=== PATIENT | male | born 1990 | race Caucasian/White ===

== ENCOUNTER 2017-08-25 14:12 | Day surgery (SDC) | payer BC ==
[2017-08-25] MEDS ORDERED: Glucagon,Human Recombinant 1 MG Vial IVPUSH ONE (14:58)
[2017-08-25] MEDS ORDERED: Sodium Chloride 0.9% 10 ML Syringe FLUSH PRN (14:58)
[2017-08-25] MEDS ORDERED: LORazepam 2 MG/ML SDV IVPUSH ONE (14:58)
--- NOTE | 2017-08-25 15:20 | EDM.PDOC ---
ED HPI GENERAL MEDICAL PROBLEM - General Chief Complaint: ENT Problem Stated Complaint: FB LODGED IN THROAT Time Seen by Provider: 08/25/17 14:58 Source of Information: Reports: Patient History Limitations: Reports: No Limitations - History of Present Illness INITIAL COMMENTS - FREE TEXT/NARRATIVE: 27-year-old male presents for evaluation and treatment of an impacted food bolus. Patient reports that last night he ate a piece of port. He states that at it felt like it became stuck. He attempted to induce vomiting but it did not appear to come up. He was able to take some sips of water last night and this morning; unclear if he was able to swallow the water. He is primarily complaining of discomfort to the suprasternal notch in the epigastric area. Today he has been unable to eat or drink anything for lunch. He cannot swallow his secretions. He denies any shortness of breath, chest pain or any difficulty breathing. He states he has had some simial symptoms to this before but never anything that is come completely impacted. He has never had an upper endoscopy. Patient reports he is healthy with no known medical conditions. He is not on any medications. - Related Data Allergies Allergy/AdvReac Type Severity Reaction Status Date / Time No Known Allergies Allergy Verified 08/25/17 14:25 Home Meds: Home Meds . [No Known Home Meds] 08/25/17 [History] Past Medical History - Past Health History Medical/Surgical History: Denies Medical/Surgical History - Past Surgical History Other HEENT Surgeries/Procedures: [place] teeth removal Social & Family History - Family History Family Medical History: Noncontributory - Tobacco Use Smoking Status *Q: Current Every Day Smoker Years of Tobacco use: 5 Packs/Tins Daily: 0.5 - Caffeine Use Caffeine Use: Reports: Coffee, Energy Drinks Caffeine Use Comment: Daily - Recreational Drug Use Recreational Drug Use: No ED ROS ENT - Review of Systems Review Of Systems: See Below Respiratory: Denies: Shortness of Breath Cardiovascular: Denies: Chest Pain GI/Abdominal: Reports: Other (reprots discomfort to the suprasternal notch and epigastric area). Denies: Nausea, Vomiting ED EXAM, ENT - Physical Exam Exam: See Below Exam Limited By: No Limitations General Appearance: Alert, WD/WN, No Apparent Distress, Thin Mouth/Throat: Normal Inspection, Normal Gums, Normal Lips, Normal Oropharynx Neck: Normal Inspection Respiratory/Chest: No Respiratory Distress, Lungs Clear, Normal Breath Sounds Cardiovascular: Normal Peripheral Pulses, Regular Rate, Rhythm, No Murmur Neurological: Alert, Oriented, Normal Cognition Psychiatric: Normal Affect, Normal Mood Skin: Warm, Dry, Normal Color Course - Vital Signs Last Recorded V/S: Last Vital Signs Temp 37.3 C 08/25/17 17:45 Pulse 92 08/25/17 17:29 Resp 20 08/25/17 17:45 BP 124/72 08/25/17 17:45 Pulse Ox 97 08/25/17 17:45 - Orders/Labs/Meds Orders: Active Orders 24 hr Category Date Time Status Patient Status [ADT] Routine ADT 08/25/17 16:43 Active Communication Order [RC] ROUTINE Care 08/25/17 17:04 Active Cooling Warming Measures [RC] ASDIRECTED Care 08/25/17 17:04 Active Notify Provider [RC] ASDIRECTED Care 08/25/17 17:05 Active Oxygen Therapy [RC] ASDIRECTED Care 08/25/17 17:04 Active Peripheral IV Care [RC] . DIRECTED Care 08/25/17 14:59 Active Pulse Oximetry [RC] ASDIRECTED Care 08/25/17 17:04 Active Ready for Discharge [RC] PER UNIT ROUTINE Care 08/25/17 17:20 Active Vital Signs [RC] Q15M Care 08/25/17 17:04 Active Peripheral IV Insertion Adult [OM.PC] Routine Oth 08/25/17 14:58 Ordered Schedule Procedure [COMM] Stat Oth 08/25/17 16:40 Ordered Meds: Medications Discontinued Medications Generic Name Dose Route Start Last Admin Trade Name Kendrickq PRN Reason Stop Dose Admin Diphenhydramine HCl 25 mg 08/25/17 17:05 Benadryl IVPUSH Q6H PRN pruritis Fentanyl Confirm 08/25/17 16:19 Sublimaze Administered 08/25/17 16:20 Dose 100 mcg .ROUTE .STK-MED ONE Fentanyl 50 mcg 08/25/17 17:05 Sublimaze IVPUSH Q5M PRN Pain Glucagon 1 mg 08/25/17 14:58 08/25/17 15:17 Glucagen IVPUSH 08/25/17 14:59 1 mg ONETIME ONE Administration Hydromorphone HCl 1 mg 08/25/17 17:05 Dilaudid IVPUSH ONETIME PRN Pain Lidocaine HCl Confirm 08/25/17 16:19 Xylocaine-Mpf 1% Administered 08/25/17 16:20 Dose 6 mls @ as directed .ROUTE .STK-MED ONE Lorazepam 1 mg 08/25/17 14:58 08/25/17 15:17 Ativan IVPUSH 08/25/17 14:59 1 mg ONETIME ONE Administration Ondansetron HCl Confirm 08/25/17 16:19 Zofran Administered 08/25/17 16:20 Dose 4 mg .ROUTE .STK-MED ONE Ondansetron HCl 4 mg 08/25/17 17:05 Zofran IVPUSH ONETIME PRN Nausea/Vomiting Propofol Confirm 08/25/17 16:19 Diprivan 20 Ml Administered 08/25/17 16:20 Dose 200 mg .ROUTE .STK-MED ONE Sodium Chloride 10 ml 08/25/17 14:58 08/25/17 15:17 Saline Flush FLUSH 10 ml ASDIRECTED PRN Administration Keep Vein Open Succinylcholine Chloride Confirm 08/25/17 16:19 Succinylcholine In Ns Pf Administered 08/25/17 16:20 Dose 100 mg .ROUTE .STK-MED ONE - Re-Assessments/Exams Free Text/Narrative Re-Assessment/Exam: 08/25/17 16:08 Patient has been unable to swallow his secretions with the glucagon and Ativan. I did given him a little sprite. He was unable to swallow the sprite and it immediately came up. Case discussed with Dr. Bui. He will take the patient to the to retrieve the food bolus. Departure - Departure Time of Disposition: 16:10 Disposition: Refer to Observation Condition: Fair Clinical Impression: Esophageal obstruction due to food impaction - Discharge Information - My Orders Last 24 Hours: My Active Orders 08/25/17 14:58 Peripheral IV Insertion Adult [OM.PC] Routine 08/25/17 14:59 Peripheral IV Care [RC] . DIRECTED - Assessment/Plan Last 24 Hours: My Active Orders 08/25/17 14:58 Peripheral IV Insertion Adult [OM.PC] Routine 08/25/17 14:59 Peripheral IV Care [RC] . DIRECTED
--- NOTE | 2017-08-25 16:14 | PCM.PREANE ---
Preanesthetic Assessment - Anesthesia/Transfusion/Family Hx Anesthesia History: Prior Anesthesia Without Reaction Family History of Anesthesia Reaction: No Transfusion History: No Prior Transfusion(s) Intubation History: Unknown - Review of Systems General: No Symptoms Pulmonary: No Symptoms (smoker: 0.5 packs/day times 5 years) Cardiovascular: No Symptoms Gastrointestinal: No Symptoms, Difficulty Swallowing Neurological: No Symptoms Other: Reports: None, Throat Pain - Physical Assessment NPO Status Date: 08/25/17 NPO Status Time: 08:00 Pulse: 70 O2 Sat by Pulse Oximetry: 100 Respiratory Rate: 16 Blood Pressure: 113/71 Temperature: 37.9 C Vital Signs: Last Vital Signs Temp 37.0 C 08/25/17 14:22 Pulse 70 08/25/17 15:18 Resp 16 08/25/17 15:18 BP 113/71 08/25/17 15:18 Pulse Ox 100 08/25/17 15:18 Height: 1.83 m Weight: 72.575 kg ASA Class: 1E Mental Status: Alert & Oriented x3 Airway Class: Mallampati = 2 Dentition: Reports: Normal Dentition, Caries Thyro-Mental Finger Breadths: 3 Mouth Opening Finger Breadths: 3 ROM/Head Extension: Full Lungs: Clear to Auscultation, Normal Respiratory Effort Cardiovascular: Regular Rate, Regular Rhythm, No Murmurs - Allergies Allergies/Adverse Reactions: Allergies Allergy/AdvReac Type Severity Reaction Status Date / Time No Known Allergies Allergy Verified 08/25/17 14:25 - Anesthesia Plan Pre-Op Medication Ordered: None - Acknowledgements Anesthesia Type Planned: General Anesthesia, MAC Pt an Appropriate Candidate for the Planned Anesthesia: Yes Alternatives and Risks of Anesthesia Discussed w Pt/Guardian: Yes Pt/Guardian Understands and Agrees with Anesthesia Plan: Yes PreAnesthesia Questionnaire - Past Health History Medical/Surgical History: Denies Medical/Surgical History - Past Surgical History Other HEENT Surgeries/Procedures: [place] teeth removal - SUBSTANCE USE Smoking Status *Q: Current Every Day Smoker Recreational Drug Use History: No - HOME MEDS Home Medications: Home Meds . [No Known Home Meds] 08/25/17 [History] - CURRENT (IN HOUSE) MEDS Current Meds: Current Medications Sodium Chloride (Saline Flush) 10 ml FLUSH ASDIRECTED PRN PRN Reason: Keep Vein Open Last Admin: 04/29/18 15:17 Dose: 10 ml Discontinued Medications Glucagon (Glucagen) 1 mg IVPUSH ONETIME ONE Stop: 08/25/17 14:59 Last Admin: 08/25/17 15:17 Dose: 1 mg Lorazepam (Ativan) 1 mg IVPUSH ONETIME ONE Stop: 08/25/17 14:59 Last Admin: 08/25/17 15:17 Dose: 1 mg
[2017-08-25] MEDS ORDERED: Ondansetron 4 MG/2 ML SDV ONE (16:19)
[2017-08-25] MEDS ORDERED: Propofol 200 MG/20 ML SDV ONE (16:19)
[2017-08-25] MEDS ORDERED: fentaNYL 100 MCG/2 ML SDV ONE (16:19)
[2017-08-25] MEDS ORDERED: Succinylcholine/Normal Saline 100 MG/5 ML Syringe ONE (16:19)
[2017-08-25] MEDS ORDERED: Lidocaine 1% 6 ML ONE (16:19)
[2017-08-25] MEDS ORDERED: diphenhydrAMINE 50 MG/ML SDV IVPUSH PRN (17:05)
[2017-08-25] MEDS ORDERED: fentaNYL 100 MCG/2 ML SDV IVPUSH PRN (17:05)
[2017-08-25] MEDS ORDERED: Ondansetron 4 MG/2 ML SDV IVPUSH PRN (17:05)
[2017-08-25] MEDS ORDERED: HYDROmorphone 1 MG/ML Syringe IVPUSH PRN (17:05)
--- NOTE | 2017-08-25 17:19 | PCM.OPNOTE ---
- General Post-Op/Procedure Note Date of Surgery/Procedure: 08/25/17 Operative Procedure(s): EGD with removal of FB in esophagus Pre Op Diagnosis: obstructed esophagus meat bolus Post-Op Diagnosis: Same Anesthesia Technique: General ET Tube Primary Surgeon: Carrington Bui EBL in mLs: 0 Complications: None Condition: Good
--- NOTE | 2017-08-25 17:29 | PCM.POSTAN ---
POST ANESTHESIA ASSESSMENT - MENTAL STATUS Mental Status: Alert - VITAL SIGNS Pulse Rate: 92 SaO2: 99 Resp Rate: 16 Blood Pressure: 123/71 Temperature: 37.3 C - RESPIRATORY Respiratory Status: Respiratory Rate WNL, Airway Patent, O2 Saturation Stable - CARDIOVASCULAR CV Status: Pulse Rate WNL, Blood Pressure Stable - GASTROINTESTINAL GI Status: No Symptoms - POST OP HYDRATION Hydration Status: Adequate & Stable
--- NOTE | 2017-08-25 18:48 | PCM48HPAN ---
Post Anesthesia Note - EVALUATION WITHIN 48HRS OF ANESTHETIC Vital Signs in Normal Range: Yes Patient Participated in Evaluation: Yes Respiratory Function Stable: Yes Airway Patent: Yes Cardiovascular Function Stable: Yes Hydration Status Stable: Yes Pain Control Satisfactory: Yes Nausea and Vomiting Control Satisfactory: Yes Mental Status Recovered: Yes
--- NOTE | 2017-08-25 19:59 | HP ---
DATE OF ADMISSION: 08/25/2017 HISTORY OF PRESENT ILLNESS: This is a 27-year-old who last night after eating a burrito around 6 o'clock, developed obstructive symptoms in the esophagus. He finally came in today, unable to pass or drink fluid, and was having trouble with his saliva. The patient's general health was good. PAST MEDICAL HISTORY: Good health. CURRENT MEDICATIONS: None. ALLERGIES: None. REVIEW OF SYSTEMS: No chest pain, shortness of breath, cough, hoarseness, or wheezing. SOCIAL HISTORY: He does smoke. No alcohol or drug use. FAMILY HISTORY: Negative. PHYSICAL EXAMINATION: GENERAL: Reveals alert, cooperative male. EYES: Sclerae white. Extraocular muscle motion normal. Oral cavity: Healthy mucous membranes with mouth and tongue. NECK: Supple. No nodes. No thyromegaly. LUNGS: Clear. No rales, rhonchi, fremitus, or dullness. HEART: Heart tones regular rate. No S3, S4, jugular venous distention, or murmurs. ABDOMEN: Soft. No tenderness, guarding, or rebound. EXTREMITIES: Upper and lower extremities: No angulation or deformities. SKIN: Warm and dry. PSYCHIATRIC: Normal. NEUROLOGIC: No neurologic deficit noted. Cranial nerves 3-12 are intact. ASSESSMENT: Foreign body obstruction of the esophagus. PLAN: For EGD. Discussed this with the patient, risks, and complications. He understands and consents. MMODAL /[id number]
--- NOTE | 2017-08-26 09:35 | OR ---
DATE OF OPERATION: 08/25/2017 SURGEON: Carrington Bui MD PREOPERATIVE DIAGNOSIS: Obstructed esophagus. POSTOPERATIVE DIAGNOSIS: Obstructed esophagus. OPERATION PERFORMED: Esophagogastroduodenoscopy and removal of food bolus from the esophagus. FINDINGS: A 2.5 cm piece of pork. There was some irritation in the distal esophagus from the presence of foreign body, but did not see any hiatal hernia or any evidence of reflux. The second portion of the duodenum, duodenal bulb, pyloric channel, antrum, body, cardia, and fundus of the stomach unremarkable. Balance of the esophagus did not show any stenosis or any other acute pathology other than inflammation due to the foreign body in the distal esophagus. ANESTHESIA: Procedure done under general anesthetic. DESCRIPTION OF PROCEDURE: The patient was taken to the endoscopy room, placed in a supine position, given a general anesthetic and intubated. The patient has remained in the supine position. The video Olympus gastroscope placed in the posterior oropharynx, under direct vision threaded past the cricopharyngeus down the esophagus to the obstructed bolus. This was grasped with a hexagon snare and gently removed from the esophagus. Scope was then reinserted into the second portion of the duodenum, slowly withdrawn showing the above findings. Second portion of the duodenum was also viewed. The antrum, body, cardia, and stomach were viewed and were unremarkable. J-maneuver showed intact hiatus. The scope withdrawn to the lower part of the esophagus showed some inflammation to the foreign body, but the upper part of the esophagus was free of any pathology. There was no evidence of stenosis. The patient tolerated the procedure and sent to recovery room in a stable condition and will be followed up in the clinic. ESTIMATED BLOOD LOSS: MMODAL /[id number]
== END 2017-08-25 18:00 | disposition home or self-care (01) ==
LOC: JD.ED 14:12 → JD.SDS 16:02
PROVIDERS: ATTEND Surgery
DX: T18.128A Food in esophagus causing other injury, initial encounter (principal); F17.210 Nicotine dependence, cigarettes, uncomplicated; Z98.818 Other dental procedure status
CPT/HCPCS: 43247; 96374; 96375; 99284; J0330; J1610; J2060; J2405; J3010; J7050; J2001; J2704